=== PATIENT | female | born 1950 | race Caucasian/White ===

== ENCOUNTER → 2019-08-16 10:56 | Outpatient (CLI) | payer OTHER, SELFPAY ==
--- NOTE | ~2019-08-16 | XR_ITS ---
EXAMINATION: XR shoulder RT min 2V DATE: 08/16/2019 11:17 INDICATION: Right shoulder pain. TECHNIQUE: 4 views of right shoulder were obtained. COMPARISON: Right shoulder radiographs 10/05/2013 FINDINGS: Bone alignment is normal. No fracture. There is mild osteoarthritis of glenohumeral joint a nd acromioclavicular joint. Electrodes overlie thoracic spine. IMPRESSION: 1. Mild polyarticular osteoarthritis. Reviewed, dictated and finalized at location A. SPECIALIST
== END ==
PROVIDERS: PCP Pain Medicine Interventional Pain Medicine; Visit Provider Pain Medicine Interventional Pain Medicine
DX: M54.17 Radiculopathy, lumbosacral region (principal); M19.011 Primary osteoarthritis, right shoulder
CPT/HCPCS: 73030

== ENCOUNTER 2020-02-02 14:27 | Outpatient (CLI) | payer OTHER, SELFPAY ==
--- NOTE | ~2020-02-02 | XR_ITS ---
XR knee LT 2V DATE: 02/02/2020 14:51 INDICATION: Left knee pain. No recent injury. TECHNIQUE: Standing AP and lateral views COMPARISON: None FINDINGS: There is tricompartment osteoarthritis, particularly severe at the medial compartment, also prominently involving the patellofemoral joint and to a lesser extent the lateral compartment. There is virtual obliteration of medial compartment joint space. There is mild periarticular spurring at t he lateral compartment. There is hypertrophic change of the tibial spines. Mild suprapatellar knee joint effusion is suggested. There is mild chondrocalcinosis identified, best demonstrated at the lateral compartment. Mild varus deformity. Mild lateral subluxation at the femoral tibial joint. No fracture or dislocation, periosteal reaction or bone destruction. IMPRESSION: Tricompartment osteoarthritis, severe at the medial and patellofemoral compartments Mild joint effusion Mild chondrocalcinosis Reviewed, dictated and finalized at location B. IMPRESSION: Tricompartment osteoarthritis, severe at the medial and patellofemo ral compartments Mild joint effusion Mild chondrocalcinosis
== END 2020-02-02 14:28 ==
DX: M17.12 Unilateral primary osteoarthritis, left knee (principal); M25.462 Effusion, left knee; G89.4 Chronic pain syndrome; M54.12 Radiculopathy, cervical region
CPT/HCPCS: 73560

== ENCOUNTER 2020-03-30 13:21 | Outpatient (CLI) | payer OTHER, SELFPAY ==
--- NOTE | ~2020-03-30 | CT_ITS ---
EXAMINATION: CT lumbar spine wo con DATE: 03/30/2020 13:46 INDICATION: Lumbar stenosis with neurogenic claudication. Low back pain. TECHNIQUE: Computed tomography (CT) of the lumbar spine was performed without intravenous contrast. A utomated exposure control and iterative reconstruction technique were employed. The dose-length produ ct was 916.41 mGy-cm. COMPARISON: Lumbar spine radiographs 04/14/2019 FINDINGS: There is 12 degrees levoscoliosis of lumbar spine. There is 3 mm retrolisthesis of L3 on L4 . Vertebral body heights are normal. There is severely decreased disc height at L2-L3 and L3-L4 and m oderately decreased disc height at L4-L5 and L5-S1. The following disc levels are specifically discus sed: L1-L2: The disc is bulging. There is severe right and moderate left facet joint osteoarthritis. There is mild left neural foraminal stenosis. There is mild central canal stenosis. L2-L3: The disc is bulging. There is severe right and moderate left facet joint osteoarthritis. There is mild bilateral neural foraminal stenosis. There is mild central canal stenosis. L3-L4: The disc is bulging. There is moderate bilateral facet joint osteoarthritis. There is moderate right and mild left neural foraminal stenosis. There is mild central canal stenosis. L4-L5: The disc is bulging. There is severe bilateral facet joint osteoarthritis. There is mild right and moderate left neural foraminal stenosis. There is mild central canal stenosis. L5-S1: The disc is bulging. There is severe bilateral facet joint osteoarthritis. There is mild bilat eral neural foraminal stenosis. There is mild central canal stenosis. IMPRESSION: 1. Severe lumbar spondylosis. 2. Lumbar levoscoliosis. Reviewed, dictated and finalized at location A.
== END 2020-03-30 13:22 ==
PROVIDERS: Visit Provider Pain Medicine Pain Medicine
DX: M48.062 Spinal stenosis, lumbar region with neurogenic claudication (principal); M47.896 Other spondylosis, lumbar region
CPT/HCPCS: 72131

== ENCOUNTER 2020-04-20 13:15 | Outpatient (CLI) | payer OTHER, SELFPAY ==
--- NOTE | ~2020-04-20 | XR_ITS ---
EXAMINATION: XR thoracic spine 2V DATE: 04/20/2020 14:03 INDICATION: Thoracic back pain TECHNIQUE: AP, lateral and lateral swimmer's views of the thoracic spine were obtained. COMPARISON: 11/13/2010 FINDINGS: The vertebral body heights and alignment are maintained. There is moderate loss of interver tebral disc space height throughout the thoracic spine. No fracture is identified. Small degenerative osteophytes project from the anterior endplates of multiple vertebral bodies. There are is unchanged thoracic dextrocurvature. Neurostimulator leads project in the central spinal canal at the level of the T7-T8 disc space. IMPRESSION: 1. Moderate thoracic spondylosis without acute findings or significant interval change. Reviewed, dictated and finalized at location A.
--- NOTE | ~2020-04-20 | XR_ITS ---
EXAMINATION: XR lumbar spine 2-3V DATE: 04/20/2020 14:03 INDICATION: Chronic back pain TECHNIQUE: Anteroposterior and lateral views of the lumbar spine, and cone-down lateral view of the l umbosacral junction were obtained. COMPARISON: CT, 03/30/2020 FINDINGS: There are 3 mm of unchanged retrolisthesis of L3 on L4. Advanced loss of intervertebral dis c space height is present at L2-3 and L3-4. There is moderate loss of intervertebral disc space heigh t at L3-4 through L5-S1. The vertebral body heights are normal. There is no fracture. Small degenerat lesly osteophytes project from the anterior endplates of multiple vertebral bodies. There is severe fac et osteoarthritis lower lumbar spine. Calcified atherosclerosis is noted. There are 10 degrees of lum bar levoscoliosis. IMPRESSION: 1. Severe lumbar spondylosis without acute findings or significant interval change. Reviewed, dictated and finalized at location A. IMPRESSION: 1. Severe lumbar spondylosis without acute findings or significant interval brandy nge.
== END 2020-04-20 13:16 ==
PROVIDERS: Visit Provider Nurse Practitioner Adult Health
DX: M47.896 Other spondylosis, lumbar region (principal); M47.24 Other spondylosis with radiculopathy, thoracic region
CPT/HCPCS: 72070; 72100

== ENCOUNTER 2020-06-13 04:12 | Emergency (ER) | payer OTHER, SELFPAY ==
--- NOTE | ~2020-06-13 | XR_ITS ---
EXAMINATION: XR chest 2V EXAM DATE: 06/13/2020 06:22 INDICATION: Shortness of breath. TECHNIQUE: Frontal and lateral projections of the chest obtained and reviewed. Comparison is made to prior examination from 07/10/2019. FINDINGS: The lungs are clear. There are no pleural effusions. The cardiomediastinal silhouette is within normal limits. There is no pneumothorax suspected. There is mild thoracic dextroscoliosis. S pine stimulator leads. There is aortic arteriosclerosis. IMPRESSION: No acute cardiopulmonary findings. Reviewed, dictated and finalized at location A. [employer]ANGER
[2020-06-13 04:16] VITALS: BP 155/94; PULSE 91; RESP 23; TEMP 36.6; O2SAT 98
--- NOTE | 2020-06-13 04:27 | ECG_ITS ---
Measurements Intervals [place] Rate: 87 P: 48 MA: 201 QRS: -1 QRSD: 79 T: 19 QT: 339 QTc: 409 Interpretive Statements SINUS RHYTHM BORDERLINE AV CONDUCTION DELAY BASELINE ARTIFACT- I, II, AVR, AVF BORDERLINE ECG Electronically Signed On 06-13-2020 7:04:31 APPRENTICE PHOTOGRAPHER by Moisés Corbett D.O.
--- NOTE | 2020-06-13 04:28 | ED.SOB ---
HPI - SOB/Dyspnea General Chief Complaint: Back Pain/Injury Stated Complaint: back pain/anxiety attack Time Seen by Provider: 06/13/20 04:21 Source: patient Mode of arrival: EMS Limitations: no limitations History of Present Illness HPI Narrative: Patient is a 70 year-old female complaining of shortness of breath that started prior to arrival. Patient states that she has asthma care for self a few breathing treatments and now states that she is feeling better. Patient denies any chest pain, abdominal pain, nausea, vomiting, fever or chills. Patient also states she has low back pain but is not the reason why she called EMS, she has chronic low back pain and had it for years . Related Data Home Medications Medication Instructions Recorded Confirmed Lantus Solostar U-100 Insulin 23 unit SUBCUT DAILY 07/09/19 07/09/19 acetaminophen-codeine 1 tablet PO Q4H PRN 07/09/19 07/09/19 [Tylenol-Codeine #3] atorvastatin 10 mg PO DAILY 07/09/19 07/09/19 gabapentin 800 mg PO QID 07/09/19 07/09/19 metformin 500 mg PO TIDHS 07/09/19 07/09/19 glimepiride 4 mg PO BID 06/13/20 methocarbamol 750 mg PO TID 06/13/20 olmesartan 5 mg PO DAILY 06/13/20 Allergies Allergy/AdvReac Type Severity Reaction Status Date / Time naproxen Allergy Unknown Unknown Verified 06/13/20 04:23 Penicillins Allergy Unknown Unknown Verified 06/13/20 04:23 pseudoephedrine Allergy Unknown Unknown Verified 06/13/20 04:23 Review of Systems Review of Systems: All systems reviewed & are unremarkable except as noted in HPI and below Constitutional: Constitutional: Denies body ache(s), Denies chills, Denies excessive sweating, Denies fatigue, Denies fever(s), Denies headache(s), Denies lethargy, Denies malaise, Denies weakness and Denies weight loss Eyes: Eyes: Denies blurry vision, Denies change in vision and Denies loss of vision ENT: Denies dizziness, Denies ear discharge, Denies headache(s), Denies lip swelling, Denies epistaxis, Denies nasal congestion, Denies neck pain, Denies throat swelling and Denies tongue swelling Cardiovascular: Cardiovascular: Denies chest pain, Denies chest pain at rest, Denies chest pain with activity, Denies diaphoresis, Denies rapid heart rate, Denies edema, Denies irregular heart rhythm, Denies lightheadedness and Denies palpitations Respiratory: Respiratory: Denies chest congestion, Denies cough and Denies hemoptysis Gastrointestinal: Gastrointestinal: Denies abdominal pain, Denies melena, Denies hematochezia, Denies diarrhea, Denies nausea, Denies vomiting and Denies hematemesis Musculoskeletal: Musculoskeletal: Denies abnormal gait, Denies deformity, Denies joint swelling, Denies limited range of motion, Denies neck pain and Denies numbness Neurologic: Denies Abnormal speech present, Denies abnormal gait, Denies confusion, Denies dizziness, Denies headache(s), Denies focal weakness, Denies loss of vision, Denies numbness, Denies Other visual disturbances, Denies Sensory deficit (Neuro) and Denies weakness Psychiatric: Psychiatric: Denies confusion, Denies depression, Denies auditory hallucinations, Denies homicidal ideation and Denies suicidal ideation Endocrine: Endocrine: Denies cold intolerance, Denies excessive sweating, Denies fatigue, Denies heat intolerance and Denies palpitations Hematologic/Lymphatic: Hematologic/Lymphatic: Denies easy bleeding and Denies easy bruising Allergic/Immunologic: Allergic/Immunologic: Denies lip swelling, Denies throat swelling and Denies tongue swelling [facility] Past Medical History Medical History (Updated 06/13/20 @ 06:43 by Jeff Humphrey MD) Arthritis COPD (chronic obstructive pulmonary disease) Depression Diabetes History of rectal polyps HTN (hypertension) Hyperlipidemia Peripheral neuropathy Seasonal allergies Surgical History Surgical History H/O tubal ligation H/O: hysterectomy Hx of tonsillectomy Family History Family His
[2020-06-13] MEDS: HYDROcodone/acetaminophen (*CRX) 5-325 MG TABLET 1 TAB PO (04:50)
[2020-06-13 04:58] LABS: Basophils Percent Auto 0.5 % (0.2-1.2); Eosinophils Absolute Auto 0.1 K/mm3 (0-0.3); Eosinophils Percent Auto 1.6 % (0-4.4); Hematocrit 43.9 % (37.0-47.0); Hemoglobin 14.3 g/dL (12.0-15.0); Immature Granulocyte Absolute 0.02 K/mm3 (0.00-0.031); Immature Granulocyte Percent A 0.2 % (0-0.5); Lymphocytes Absolute Auto 1.89 K/mm3 (0.9-3.2); Lymphocytes Percent Auto 23.4 % (18.3-44.2); Mean Corpuscular HGB Conc 32.6 g/dl (32-36); Mean Corpuscular Hemoglobin 30.4 pg (26-34); Mean Corpuscular Volume 93.2 fl (80-100); Mean Platelet Volume 10.8 fl (7.4-10.4); Monocytes Absolute Auto 0.4 K/mm3 (0.1-0.6); Monocytes Percent Auto 4.6 % (2.6-8.5); Neutrophils Absolute Auto 5.6 K/mm3 (1.3-6.7); Neutrophils Percent Auto 69.7 % (45.5-73.1); Platelet Count Result 249 k/mm3 (150-375); Red Blood Count 4.71 M/mm3 (4.2-5.4); Red Cell Distribution Width 12.6 % (11.5-14.5); White Blood Count 8.1 K/mm3 (4.5-10.0)
[2020-06-13 05:08] LABS: INR 0.9; Partial Thromboplastin Time 26.7 SECONDS (22.3-36.8); Prothrombin Time 12.8 Seconds (11.1-14.7)
[2020-06-13 05:14] LABS: Alanine Aminotransferase 15 U/L (4-35); Albumin Level 4.1 g/dL (3.5-5.1); Alkaline Phosphatase 85 U/L (38-126); Anion Gap 10 mmol/L (8-16); Aspartate Amino Transferase 22 U/L (14-36); Bilirubin,Total 0.3 mg/dL (0.2-1.3); Blood Urea Nitrogen 19 mg/dL (7-17); Calcium 9.4 mg/dL (8.4-10.2); Carbon Dioxide 24 mmol/L (22-30); Chloride 107 mmol/L (98-107); Estimated CRCL calculation 64 ml/min; Estimated Glomerular Filt Rate > 60; Glucose 191 mg/dL (65-105); Sodium 141 mmol/L (137-145)
[2020-06-13 05:30] LABS: NT Pro B Type Natriuretic Pept 66 PG/ML (5-100)
[2020-06-13 05:54] LABS: Troponin I < 0.012 ng/mL (0.000-0.034)
[2020-06-13 06:58] VITALS: BP 137/76; PULSE 79; RESP 12; O2SAT 97
== END 2020-06-13 06:59 | disposition home or self-care (01) ==
PROVIDERS: Emergency Provider Emergency Medicine
DX: R06.00 Dyspnea, unspecified (principal); M54.5 Low back pain; E11.42 Type 2 diabetes mellitus with diabetic polyneuropathy; E78.5 Hyperlipidemia, unspecified; M19.90 Unspecified osteoarthritis, unspecified site; Z79.4 Long term (current) use of insulin; Z87.891 Personal history of nicotine dependence; R94.31 Abnormal electrocardiogram [ECG] [EKG]
CPT/HCPCS: 36415; 71046; 80053; 83880; 84484; 85025; 85610; 85730; 93005; 99284; A9270